=== PATIENT | female | born 1970 | race Caucasian/White ===

== ENCOUNTER → 2016-12-16 | Outpatient (CLI) | payer OTHER, SELFPAY | LOC: HEART 5 11:00 | DX: I49.3 Ventricular premature depolarization (principal); R07.89 Other chest pain | CPT/HCPCS: 93306 ==

== ENCOUNTER → 2021-08-20 | Day surgery (SDC) | payer OTHER ==
[~2021-08-20] MED LIST: MULTI-BETIC TA1 EACH PO
== END | disposition home or self-care (01) ==
LOC: OR 05:46
DX: Z12.11 Encounter for screening for malignant neoplasm of colon (principal); E78.5 Hyperlipidemia, unspecified; Z86.010 Personal history of colon polyps; Z90.710 Acquired absence of both cervix and uterus; Z88.1 Allergy status to other antibiotic agents; Z79.899 Other long term (current) drug therapy; Z80.1 Family history of malignant neoplasm of trachea, bronchus and lung; Z87.891 Personal history of nicotine dependence
CPT/HCPCS: J2704; J7030